=== PATIENT | female | born 1970 ===

== ENCOUNTER 2023-03-26 07:00 | Inpatient (IN) | payer OTHER ==
[~2023-03-26] VITALS: Ht 154.9 cm; Wt 61.7 kg
[2023-03-26] MEDS ORDERED: [UNRECOGNIZED DRUG - OTHER] PO (10:00)
[2023-03-26] MEDS ORDERED: VYTORIN 10-201 EACH PO (10:01)
[2023-03-26] MEDS ORDERED: MULTIVIT PO (10:01)
[2023-03-26] MEDS ORDERED: CALTRATE 600+D1 EAC1 PO (10:02)
[2023-03-26] MEDS ORDERED: VYTORIN 10-401 EACH PO (10:03)
[2023-03-26] MEDS ORDERED: [UNRECOGNIZED DRUG - OTHER] PO (10:03)
[2023-04-02 06:41] LABS: HEMATOCRIT 33.3 % (36.0-45.00); MEAN CELL VOLUME 87.6 fL (80.00-100.00); MEAN CORPUSCULAR HEMOGLOBIN 29.1 pg (27.00-32.0); MEAN CORPUSCULAR HGB CONC 33.2 g/dl (32.0-36.0); PLATELET COUNT 255 K/uL (150-450); RED CELL DISTRIBUTION WIDTH 14.4 % (11.5-14.5)
== END 2023-04-02 09:01 | disposition home or self-care (01) | DRG 621 ==
LOC: O/R 04-01 05:15 → SURH 04-01 07:00
PROVIDERS: ADMIT Specialist; ATTEND Specialist
PROC: 0HBV0ZZ Excision of Bilateral Breast, Open Approach (ICD-10-PCS; 2023-04-01)
PROC: 0J073ZZ Alteration of Back Subcutaneous Tissue and Fascia, Percutaneous Approach (ICD-10-PCS; 2023-04-01)
PROC: 0JB80ZZ Excision of Abdomen Subcutaneous Tissue and Fascia, Open Approach (ICD-10-PCS; principal; 2023-04-01 07:00)
DX: E65 Localized adiposity (principal); N62 Hypertrophy of breast; L98.7 Excessive and redundant skin and subcutaneous tissue; Z20.822 Contact with and (suspected) exposure to COVID-19